=== PATIENT | female | born 1975 | race Caucasian/White ===

== ENCOUNTER 2022-12-04 21:43 | Outpatient (CLI) | payer OTHER, SELFPAY ==
--- NOTE | ~2022-12-04 | CT_ITS ---
EXAMINATION: CT abdomen pelvis w con INDICATION: Lower abdominal pain TECHNIQUE: Computed tomographic images of the abdomen and pelvis were obtained after the administrati on of 100 cc of Omnipaque 350 intravenous contrast. The dose-length product (DLP) was 444.28 mGy-cm. Automated exposure control and iterative reconstruction technique were employed. COMPARISON: None available FINDINGS: There is moderate emphysema of the visualized lung bases. There is a 7 mm nodule of the lef t lower lobe. There is focal steatosis of the liver near the ligamentum teres. The spleen, pancreas, gallbladder, and adrenal glands are normal. The kidneys are unremarkable. There is colonic diverticul osis. There is wall thickening with adjacent inflammatory stranding near the distal descending/proxim al sigmoid junction. No abscess or perforation are identified. No pathologically enlarged abdominal o r pelvic lymph nodes are identified. There is a 2.9 cm cyst of the left ovary. No free intraperitonea l gas or evidence of bowel obstruction. The appendix is normal. IMPRESSION: 1. Acute diverticulitis of the distal descending/proximal sigmoid colon, uncomplicated. 2. 7 mm nodule of the left lower lobe. Follow-up CT in 6-12 months is recommended. 3. Moderate emphysema. Reviewed, dictated and finalized at location F. IMPRESSION: 1. Acute diverticulitis of the distal descending/proximal sigmoid colon, uncomp licated. 2. 7 mm nodule of the left lower lobe. Follow-up CT in 6-12 months is recommend ed. 3. Moderate emphysema.
== END 2022-12-04 21:44 | disposition home or self-care (01) ==
DX: K57.32 Diverticulitis of large intestine without perforation or abscess without bleeding (principal); R91.1 Solitary pulmonary nodule; J43.9 Emphysema, unspecified; R10.32 Left lower quadrant pain; R10.30 Lower abdominal pain, unspecified
CPT/HCPCS: 74177; Q9967